=== PATIENT | male | born 1945 | race Caucasian/White ===

== ENCOUNTER → 2023-07-08 16:06 | Outpatient (REF) | payer OTHER, SELFPAY | LOC: HWRAD 16:06 | PROVIDERS: ATTENDING PHYSICIAN Surgery; FAMILY PHYSICIAN Family Medicine | DX: K40.90 Unilateral inguinal hernia, without obstruction or gangrene, not specified as recurrent (principal) | CPT/HCPCS: 74176 ==

== ENCOUNTER 2023-09-15 06:15 | Day surgery (SDC) | payer OTHER, SELFPAY ==
[2023-09-05 13:50] VITALS: BMI 27.5
[2023-09-15] VITALS (10 sets, daily range): BP systolic 119–163; BP diastolic 69–84; BMI 26.6
[2023-09-15] MEDS: TYLENOL 1000 MG PO (06:41)
[2023-09-15] MEDS: NORMOSOL-R 1000 IV (06:41)
--- NOTE | 2023-09-15 07:19 | W.SUR.PREOP ---
Pre-Operative Surgical Note
-
I have examined this patient prior to the performance of the scheduled procedure.
The patient's condition is unchanged from the time of the current History and
Physical and the patient is able to undergo the scheduled procedure.
--- NOTE | 2023-09-15 09:39 | W.IMMPOSTOP ---
Surgical Immed Post Op Note
-
Primary Surgeon: Andrez Elizondo MD
Assisting Surgeon: None
Pre-op Diagnosis: Right inguinal hernia, right spigelian hernia
Post-op Diagnosis: Same
Procedure Performed:
1. Robotic right inguinal hernia repair
2. Right spigelian hernia repair
Anesthesia Type: General
Specimen / Cultures: None
Estimated Blood Loss: 3 cc
Complications: None
Operative Findings: 3 cm right spigelian hernia containing fat. Moderate sized direct inguinal hernia that was inverted and secured to Kin's ligament. No femoral or indirect components. There was a small cord lipoma that was emanating from the
retroperitoneum that was partially reduced. Both hernia defects reinforced with an extra-large right mid weight Bard 3D max uncoated polypropylene mesh.
POST OP PLAN:
Will discharge home after voiding.
--- NOTE | 2023-09-15 09:44 | OR.RPT ---
Operative Report
Operative Report
Patient Name: Jeremie Alves
: 1945
Date of Operation: 09/15/2023
Preoperative Diagnosis: Right inguinal hernia, right spigelian hernia
Postoperative Diagnosis: Same
Procedure(s):
1. Robotic right inguinal hernia repair (JERRY approach)
2. Robotic spigelian hernia repair
Surgeon(s):
Dr. Elizondo
Scrap Shear Operator(s):
BULMARO Burnett
Anesthesia: General
Estimated Blood Loss: 3 cc
Urine Output: None
Drains/Lines/Implants: XLarge 3D Max Bard mid weight mesh
Specimens: None
Indication for surgery: The patient has a history of groin pain and noted on exam to have a Left inguinal Hernia(s). Following review of therapeutic options they has elected to undergo a minimally invasive repair.
Operative Findings: 3 cm right spigelian hernia containing fat. Moderate sized direct inguinal hernia that was inverted and secured to Kin's ligament. No femoral or indirect components. There was a small cord lipoma that was emanating from the
retroperitoneum that was partially reduced. Both hernia defects reinforced with an extra-large right mid weight Bard 3D max uncoated polypropylene mesh.
Details of the operation:
The patient was brought to the Operating Room and placed in the supine position with the arms tucked. IV antibiotics were infused and Venodyne stockings placed. Following uneventful induction of general endotracheal anesthesia, an orogastric tube
were placed. The abdomen was prepped and draped in the usual sterile fashion. The abdomen was entered using a Veress technique which required 1 pass(es), pneumoperitoneum to 15 mmHg was obtained without difficulty. A 8mm trochar was passed through
the abdominal wall roughly 25 cm cephalad to the inguinal canal. We then confirmed that no inadvertent injury was made while passing the trocar or Veress needle. We then placed two additional 8 mm ports in the left upper and right upper quadrants.
We then docked the robot with a Prograsper in the left hand port and monopolar scissors in the right. A right direct defect and a right spigelian hernia were both readily visualized. The right direct defect did contain some small bowel but this
was easily reduced. It appeared that both defects were close enough together that we could repair them through the same flap. We then began by creating a flap superior to the level of the ASIS laterally working our way medially to the medial
umbilical fold. Staying onto the peritoneum we were able to circumferentially dissect around the spigelian hernia sac and reduce it. On the medial aspect of the sac the right inferior epigastric artery and twin veins were noted to be in very close
proximity. The defect measured roughly 3 x 2 cm, and was closed with a running 2-0 V-Loc 180 taking care to preserve the inferior epigastric vessels. We then turned our attention to the inguinal portion of the dissection. The direct inguinal
hernia 'pseudosac' was identified and gently peeled off of the underlying retroperitoneal fat. There was no indirect or femoral hernias. The peritoneum was identified and we peeled it off of the underlying spermatic cord and testicular vessels,
taking care to preserve them. A small rent in the peritoneum was made during this part of the dissection but with the was closed with a 0 Vicryl [id number]. The underlying small bowel was inspected to ensure that no inadvertent injury had
occurred.
Medially we identified the midline pubis as well as Kin's ligament and ensured to dissect 2 cm below the pubic rim over the bladder. There was a fairly large vein here that had to be sacrificed. After exposure of the entire myopectineal
orifice we identified and reduced: A medium sized direct inguinal hernia, no indirect inguinal hernia, no femoral hernia, a small cord lipoma, which was partially resected as it appeared to be intimately involved with the underlying iliac vessel fat
pad.
We then fixated an Xlarge 3D max mid weight mesh with a 2-0 Vicryl stitch at coopers medially, superiorly along the rectus and laterally. The flap was then closed with a running 2-0 barbed monocryl suture ensuring that the tail was cut flush with
the medial fat pad so that no barbs were exposed. During the closure of the flap an Angiocath was inserted and 20 cc of quarter percent Marcaine was instilled. The area in the flap cavity was then evacuated of air confirming that the mesh was
flush and there were no folds. All needles and instruments were then removed and the robot was undocked. The abdomen was then desufflated, and pneumoperitoneum evacuated. All skin sites were then closed with 4-0 Monocryl followed by Dermabond.
Counts were correct and overall, the patient tolerated the procedure well and was taken to the Recovery Room postoperatively in stable condition.
I was the attending physician and performed the procedure with assistance of the PA above. The assistance of BULMARO Burnett was required due to the complexity of the procedure. During the procedure Clarice assisted with port placement, passing
instruments and mesh as well as closure of the wound. I was present for all portions of the case except for wound closure.
Andrez Elizondo MD
[2023-09-15] MEDS: FLOMAX 0.400000000000000022 MG PO (10:24)
== END 2023-09-15 12:25 | disposition home or self-care (01) ==
LOC: SDS 06:15
PROVIDERS: ATTENDING PHYSICIAN Surgery; FAMILY PHYSICIAN Family Medicine; OTHER PHYSICIAN Internal Medicine Cardiovascular Disease
DX: K40.90 Unilateral inguinal hernia, without obstruction or gangrene, not specified as recurrent (principal); K43.9 Ventral hernia without obstruction or gangrene
CPT/HCPCS: 49650; 49593; 36415; 93005; C1781

== ENCOUNTER → 2023-12-13 06:21 | Day surgery (SDC) | payer OTHER, SELFPAY | LOC: GI 06:21 | PROVIDERS: ATTENDING PHYSICIAN Specialist; FAMILY PHYSICIAN Family Medicine | DX: Z12.11 Encounter for screening for malignant neoplasm of colon (principal); Z86.010 Personal history of colon polyps; K57.30 Diverticulosis of large intestine without perforation or abscess without bleeding; K62.89 Other specified diseases of anus and rectum; K62.1 Rectal polyp; R93.3 Abnormal findings on diagnostic imaging of other parts of digestive tract; K21.00 Gastro-esophageal reflux disease with esophagitis, without bleeding; K22.89 Other specified disease of esophagus; K31.89 Other diseases of stomach and duodenum; K29.50 Unspecified chronic gastritis without bleeding | CPT/HCPCS: 45380; 43239; 88305; 88342 ==

== ENCOUNTER 2024-03-22 06:15 | Day surgery (SDC) | payer OTHER, SELFPAY ==
[2024-03-22 06:43] VITALS: BMI 27.2
[2024-03-22 06:53] VITALS: BP 153/91
[2024-03-22 07:01] VITALS: BMI 27.2
[2024-03-22 09:03] VITALS: BP 150/89
[2024-03-22 09:15] VITALS: BP 153/79
[2024-03-22 09:30] VITALS: BP 134/73
== END 2024-03-22 09:40 | disposition home or self-care (01) ==
LOC: SDS 06:15
PROVIDERS: ATTENDING PHYSICIAN Internal Medicine Gastroenterology
DX: K21.00 Gastro-esophageal reflux disease with esophagitis, without bleeding (principal); K31.89 Other diseases of stomach and duodenum
CPT/HCPCS: 43259

== ENCOUNTER → 2024-07-24 09:53 | Outpatient (REF) | payer OTHER, SELFPAY | LOC: RCS 09:53 | PROVIDERS: ATTENDING PHYSICIAN Internal Medicine Cardiovascular Disease; FAMILY PHYSICIAN Family Medicine | DX: I10 Essential (primary) hypertension (principal); I35.8 Other nonrheumatic aortic valve disorders; R94.31 Abnormal electrocardiogram [ECG] [EKG] | CPT/HCPCS: 93017 ==

== ENCOUNTER → 2024-08-09 12:28 | Outpatient (REF) | payer OTHER, SELFPAY | LOC: HWRCS 12:28 | PROVIDERS: ATTENDING PHYSICIAN Internal Medicine Cardiovascular Disease; FAMILY PHYSICIAN Family Medicine | DX: I10 Essential (primary) hypertension (principal) | CPT/HCPCS: 78452; 93017; A9500; J2785 ==